=== PATIENT | male | born 1945 | race Caucasian/White ===

== ENCOUNTER → 2019-11-09 14:23 | Outpatient (CLI) | payer MEDICARE, OTHER, SELFPAY ==
[2019-11-10 12:23] LABS: COVID19 Sendout Not Detected (Not Detect)
== END ==
PROVIDERS: Family Provider Family Medicine; PCP Family Medicine; Visit Provider Physician Assistant
DX: Z11.59 Encounter for screening for other viral diseases (principal)
CPT/HCPCS: 87635

== ENCOUNTER → 2019-11-12 10:35 | Outpatient (CLI) | payer MEDICARE, OTHER, SELFPAY ==
--- NOTE | 2019-11-13 19:15 | DI.NM.S_ITS ---
DATE OF SERVICE: 11/12/2019 PROCEDURE PERFORMED: Exercise treadmill, converted to pharmacologic vasodilator stress and rest myocardial perfusion imaging with gating to assess ejection fraction and regional wall motion. ORDERING PROVIDER: Dr. Nieves Andrews. INDICATIONS: The patient is a 73-year-old male with exertional chest discomfort. CARDIAC STRESS: The patient was initially stressed by treadmill but was able to exercise for only 3 minutes being limited by knee pain. He did develop 3/10 chest discomfort at the end of stage I that promptly abated with cessation of exercise. Because of an inadequate heart rate response, he was changed to a pharmacologic stress with infusion of 0.4 mg of regadenoson. With this, he had moderate dyspnea, but no chest discomfort. His resting ECG shows sinus rhythm without any Q-waves or significant ST-segment abnormalities. With stress, there are no obvious ST-segment abnormalities, although there is considerable motion artifact on the exercise portion of the stress test, but no ST-segment abnormalities with pharmacologic stress. He had occasional isolated PVCs without obvious complex ventricular ectopy. Per protocol, 26.7 mCi of technetium-99m Myoview was injected and he was imaged 15 minutes later using a gated SPECT acquisition protocol. He returned the following day and was reinjected with an additional 25.2 millicuries of technetium-99m Myoview and was imaged 30 minutes later using a gated SPECT acquisition protocol. FINDINGS: 1. Raw Data: There is fair myocardial tracer uptake. Lung/heart ratio was normal at 0.39 with a normal TID ratio 0.77. 2. Quantitated gated SPECT: Post-stress ejection fraction is estimated at 79% without any focal wall motion abnormality and specifically the inferior wall appears to have normal contractility. The resting ejection fraction is 74% with a similar contraction pattern and a resting end-diastolic volume of 120 mL. 3. Post-stress supine images shows a significant perfusion defect in the entire inferior wall extending to the inferior apex. This defect improves, but does not resolve on the prone images concerning for true perfusion defect. The resting images show significant improvement in this defect, although with residual defect in the proximal to mid portion of the inferior wall. IMPRESSION: 1. Abnormal myocardial perfusion study. 2. Partially fixed, but predominantly reversible perfusion defect in the inferior wall that improves, but does not resolve on the prone images. This would suggest probable myocardial ischemia in the right coronary artery distribution. 3. Normal left ventricular systolic function without any focal wall motion abnormality. 4. Exercise limited by knee pain, but with provokable chest discomfort, although no obvious ST-segment abnormalities with exercise or pharmacologic stress. Rommel Graham - Sukhjinder/bhaskar doc#: [id number]/job#: [id number] dd: 11/13/2019 17:03:00 dt: 11/13/2019 18:53:00 DICTATING MD/COPIES TO: Jj Walker MD; Nieves Andrews, COPIES MNE: [email or web address];
== END ==
PROVIDERS: Family Provider Family Medicine; PCP Family Medicine; Referring Provider Family Medicine; Visit Provider Family Medicine
DX: R94.39 Abnormal result of other cardiovascular function study (principal); R07.89 Other chest pain
CPT/HCPCS: 78452; 93016; 93017; 93018; A9502; J2785

== ENCOUNTER → 2024-10-14 09:27 | Outpatient (CLI) | payer MEDICARE, OTHER, SELFPAY ==
--- NOTE | 2024-11-19 20:25 | DI.NM.S_ITS ---
DATE OF SERVICE: 10/14/2024 PROCEDURE: Resting perfusion study only. 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 The patient started having shortness of breath; hence, he was scheduled for stress test. However, after having resting study, the patient did not show up for stress part despite being multiple reminder. RADIOPHARMACEUTICAL: 26.4 millicurie technetium-99m Myoview IV was injected at rest. Resting study perfusion part only. Resting LV ejection fraction 73% without any obvious wall motion abnormalities with resting end-diastolic volume 153 mL. On perfusion scan, there appears to be small size, mildly decreased perfusion of basal inferior wall as well as mild apical thinning. CONCLUSION: On resting perfusion scan, there is a small size, mildly decreased perfusion of basal inferior wall and mild apical thinning. The patient did not show up for stress test. Resting LV ejection fraction 73%. Rommel Graham - HOWARD/missy/RACHELLE doc#: [id number]/job#: [id number] dd: 11/19/2024 16:55:00 dt: 11/19/2024 20:15:00 DICTATING MD/COPIES TO: Jud Barrett MD COPIES MNE: MAYKEL;
== END ==
PROVIDERS: PCP Nurse Practitioner Family; Referring Provider Internal Medicine Cardiovascular Disease; Visit Provider Internal Medicine Cardiovascular Disease
DX: I25.10 Atherosclerotic heart disease of native coronary artery without angina pectoris (principal); Z95.5 Presence of coronary angioplasty implant and graft
CPT/HCPCS: 78451; A9502